=== PATIENT | female | born 1990 | race Caucasian/White ===

== ENCOUNTER → 2017-03-22 | Outpatient (CLI) | payer BC ==
[~2017-03-22] MED LIST: BCPILLS; FRRS300 PO; IBUP600T44 PO; OXYC-57 PO
[2017-03-22 12:17] LABS: HEMATOCRIT 43.2 % (37-47); MEAN CELL VOLUME 82.6 fL (80-100); MEAN CORPUSCULAR HEMOGLOBIN 28.3 pg (25-34); MEAN CORPUSCULAR HGB CONC 34.3 g/dl (32-36); PLATELET COUNT 304 K/uL (130-400); RED BLOOD COUNT 5.23 M/uL (4.2-5.4); WHITE BLOOD COUNT 7.53 K/uL (4.8-10.8)
== END | disposition home or self-care (01) ==
LOC: C.LAB1850 10:27
PROVIDERS: ATTEND Obstetrics & Gynecology
DX: N93.8 Other specified abnormal uterine and vaginal bleeding (principal)

== ENCOUNTER → 2017-05-24 | Day surgery (SDC) | payer BC ==
[2017-05-04 08:53] VITALS: Ht 162.6 cm; Wt 90.9 kg
[~2017-05-24] VITALS: Ht 162.6 cm; Wt 90.9 kg
[~2017-05-24] MED LIST changes: +ATROPINE SULFATE 0.1 MG/ML 5ML SYR IV PRN; -BCPILLS; +CHECK SCOPOLAMINE PATCH PLACEMENT SCH; +DEXAMETHASONE SOD INJ 4 MG/ML VIAL ONE; +EpHEDrine SULFATE INJ 50 MG/ML AMP IV PRN; +FENTANYL CITRATE INJ 50 MCG/1 ML 2 ML VIAL IV PRN; +FENTANYL CITRATE INJ 50 MCG/1 ML 2 ML VIAL ONE; -FRRS300 PO; +HYDROmorphone INJ 1 MG/ML SYR IV PRN; -IBUP600T44 PO; +IBUPROFEN 600 MG TAB PO PRN; +KETOROLAC TROMETHAMINE 30 MG/ML VIAL IV. PRN; +LACTATED RINGER'S 1000ML 1,000 ML IV SCH; +LIDOCAINE HCL 2% 2 ML VIAL (20MG/ML) ONE; +METOCLOPRAMIDE HCL INJ 5 MG/ML 2 ML VIAL IV PRN; +MIDAZOLAM HCL 1 MG/ML 2ML VIAL ONE; +ONDANSETRON INJ 2 MG/ML 2 ML VIAL IV PRN; +ONDANSETRON INJ 2 MG/ML 2 ML VIAL ONE; -OXYC-57 PO; +OXYCODONE/ACETAMINOPHEN 5-325 TAB PO PRN; +PRENTAB26 PO; +PROMETHAZINE HCL INJ 12.5 MG in SODIUM CHLORIDE 0.9% 50ML 50 ML IV PRN; +PROPOFOL IV EMULSION 10 MG/ML 20 ML VIAL IV ONE; +SCOPOLAMINE 1.5 MG TDSY TD ONE; +SODIUM CHLORIDE 0.9% 1000ML 1,000 ML IV SCH; +SUCCINYLCHOLINE CHLORIDE 20 MG/ML 10 ML VIAL IV ONE
--- NOTE | 2017-05-24 06:52 | History & Physical Bridge - [place] ---
H&P Re-Evaluation Bridge Note: I have examined the patient, reviewed the History & Physical and in the interval since the performance of the History & Physical I have noted the following changes of clinical significance: No changes noted
--- NOTE | 2017-05-24 06:54 | Discharge Instructions-SurgCtr ---
Discharge Instructions Date of Service May 24, 2017. Visit Reason for Visit: Irregular Menses, Thickened Endometrium Discharge Discharge Diagnosis / Problem: thickened endometrium Discharge Goals Goal(s): Specific goals Activity Recommendations Activity Limitations: per Instructions/Follow-up section Anesthesia . Post Anesthesia Instructions: If you have had General Anesthesia or IV Sedation: * Do not drive today. * Resume driving when surgeon permits. * Do not make important decisions or sign legal documents today. * Call surgeon for: 1. Temperature elevations greater than 101 degrees F. 2. Uncontrollable pain. 3. Excessive bleeding. 4. Persistent nausea and vomiting. 5. Medication intolerance (nausea, vomiting or rash). * For nausea and vomiting use only clear liquids such as: tea, soda, bouillon until nausea subsides, then gradually increase diet as tolerated. * If you have any concerns or questions, call your surgeon's office. If physician is unavailable and it is an emergency, call 911 or go to the nearest emergency room. . Instructions / Follow-Up Instructions / Follow-Up ACTIVITY RECOMMENDATIONS: * Avoid tampons, douching, hot tubs, pools, and intercourse until bleeding has stopped. * May shower as usual. * No strenuous activity for 24-48 hours. After 24-48 hours, you may do anything you feel like doing (driving and sports are okay). SPECIAL CARE INSTRUCTIONS: Special Diet: * Mild nausea may occur in the immediate post-operative period. * Take clear liquids such as tea, cola or bouillon until all nausea has subsided; you may then resume your normal diet. Special Care: * Light bleeding and vaginal spotting can last from a few days to 3-4 weeks. Call your doctor if bleeding becomes heavier than the heaviest part of your period. * Check your temperature twice a day for one week. If it goes above 100.4 degrees Fahrenheit (38.0 Celsius), notify your doctor. * Call your doctor's office for an appointment for 6 weeks after your surgery. FOLLOW-UP VISIT: Call your doctor's office for an appointment for 6 weeks after your surgery. Diet Recommendations Home Diet: resume previous diet Pending Studies Studies pending at discharge: no Medical Emergencies . Who to Call and When: Medical Emergencies: If at any time you feel your situation is an emergency, please call 911 immediately. . Non-Emergent Contact Non-Emergency issues call your: Primary Care Provider . . "Provider Documentation" section prepared by Alea Muir. .
--- NOTE | 2017-05-24 08:01 | [facility] Post Operative Brief Note ---
Immediate Operative Summary Operative Date May 24, 2017. Pre-Operative Diagnosis Dysfunctional Uterine Bleeding Post-Operative Diagnosis same as preop Procedure(s) Performed Dilatation And Curettage, Hysteroscopy Surgeon Dr. Muir [employer] Surgeon(s) none Estimated Blood Loss 10ML Findings see dictation Specimens A: Endometrial Curettings Complication(s) None Disposition Recovery Room / PACU
[2017-05-24 08:21] VITALS: TEMP 36.5
--- NOTE | 2017-05-24 08:22 | Anesthesia Progress Nt - [facility] ---
Anesthesia Post Op Note Date & Time May 24, 2017 at 08:22 Vital Signs Pain Intensity: 0 Vital Signs Past 12 Hours Date Time Temp Pulse Resp B/P (MAP) Pulse Ox O2 Delivery O2 Flow Rate FiO2 05/24/17 08:14 36.6 05/24/17 08:11 115/78 (83) 05/24/17 08:10 65 18 94 05/24/17 08:10 64 18 05/24/17 08:06 115/76 (79) 05/24/17 08:05 71 21 96 05/24/17 08:05 71 21 05/24/17 08:01 100/63 (69) 05/24/17 08:00 Room Air 05/24/17 08:00 54 15 98 05/24/17 08:00 53 15 05/24/17 07:56 117/66 (82) 05/24/17 07:55 56 19 99 05/24/17 07:55 58 19 05/24/17 07:51 109/68 (83) 05/24/17 07:50 59 19 05/24/17 07:50 61 19 97 05/24/17 07:45 115/71 (83) 05/24/17 07:43 36.6 65 16 115/71 99 Diffusion Mask 5 05/24/17 06:29 36.9 78 22 140/89 (106) 100 Room Air Notes Mental Status: alert / awake / arousable, participated in evaluation Pt Amnestic to Procedure: Yes Nausea / Vomiting: adequately controlled Pain: adequately controlled Airway Patency, RR, SpO2: stable & adequate BP & HR: stable & adequate Hydration State: stable & adequate Anesthetic Complications: no major complications apparent
--- NOTE | 2017-05-24 08:28 | OPERATIVE REPORT ---
DATE OF OPERATION: 05/24/2017 PREOPERATIVE DIAGNOSES: Dysfunctional uterine bleeding and thickened endometrium. POSTOPERATIVE DIAGNOSES: Same. PROCEDURE: D&C with hysteroscopy. SURGEON: Dr. Muir. MANAGER PAID: None. ESTIMATED BLOOD LOSS: 10 mL. FLUID DEFICIT: 45 mL of normal saline. FINDINGS: Endometrial cavity essentially filled with a cribriform tissue, demonstrating dilated blood vessels and discoloration, both calcification looking white and atypical vessel looking bluish black throughout the tissue. SPECIMENS: Endometrial curettings. COMPLICATIONS: None. DISPOSITION: Stable to the recovery room. DESCRIPTION OF PROCEDURE: Josy Zuniga is a 26-year-old with abnormal uterine bleeding, found to have thickened endometrium on ultrasound and brought to the operating room for a D&C and hysteroscopy. She was placed on the table in the dorsal lithotomy position with candy-cane stirrups, prepped and draped in standard sterile fashion and a hard time-out was taken prior to proceeding. The bladder was emptied of 300 mL of clear yellow urine via straight catheterization. Suresh and weighted specula were then placed in the vagina to expose the cervix, which anterior lip was then grasped using a single-tooth tenaculum. Uterus was sounded to 8 cm and then the cervical dilation proceeded to a 21-Faroese. This allowed easy placement of a 5-mm hysteroscope into the cavity. Initial entry to the cavity revealed a soft cribriform appearing tissue, essentially filling the endometrial cavity in a web-like manner. Some parts of it appeared to contain calcifications of bright white material. Other parts appeared to contain atypical vessels, some of which were dilated and tortuous with a bluish black discoloration to some of the tissue. Given the overall shape of the cavity, I felt confident this was indeed the endometrial cavity, although definitive ostia could not be visualized due to the filling of tissue. As the hysteroscope was withdrawn, I watched and again by looking at the endocervical cavity and the way that it blossomed directly into this tissue filled cavity, I felt confident of the correct placement of the scope. The scope was then withdrawn. Telfa was placed in the vagina to catch endometrial curettings and a sharp curet was then gently introduced to the fundus and used to curette the tissue. Several large solid pieces of tissue measuring up to 2-3 cm in size were almost immediately retrieved with minimal effort. Further curettings revealed continued excessive endometrial appearing tissue, some of which was quite solid and pale in appearance. Curettage was carried out until cry was felt. The scope was then reintroduced and a more normal appearing endometrial cavity was then able to be seen. The ostia were able to be visualized at this time; however, a small amount of abnormal tissue did appear to remain. Therefore, the scope was withdrawn and gentle curettage was directed at the areas, where abnormal tissue was felt to remain. A small amount of additional endometrial curettings was retrieved in this manner. All the endometrial curettings were placed in 1 sample to be sent to pathology. The scope was replaced one final time in the cavity, which revealed a nearly normal endometrial cavity and endocervical canal. The scope was then withdrawn. All instruments were removed from the patient. EBL was estimated at 10 mL absolute maximum and the fluid deficit was 45 mL of normal saline. The patient will be transferred in stable condition to the recovery room. I attest to the content of the Intraoperative Record and any orders documented therein. Any exception s are noted below.
[2017-05-24 08:44] VITALS: BP 134/86; PULSE 54; O2SAT 98
== END | disposition home or self-care (01) ==
LOC: X.SURG 06:06
PROVIDERS: ATTEND Obstetrics & Gynecology
DX: N85.01 Benign endometrial hyperplasia (principal); R93.8 Abnormal findings on diagnostic imaging of other specified body structures; E03.9 Hypothyroidism, unspecified; Z82.49 Family history of ischemic heart disease and other diseases of the circulatory system; E66.9 Obesity, unspecified

== ENCOUNTER → 2017-11-23 | Outpatient (CLI) | payer BC ==
[~2017-11-23] MED LIST changes: -ATROPINE SULFATE 0.1 MG/ML 5ML SYR IV PRN; -CHECK SCOPOLAMINE PATCH PLACEMENT SCH; -DEXAMETHASONE SOD INJ 4 MG/ML VIAL ONE; -EpHEDrine SULFATE INJ 50 MG/ML AMP IV PRN; -FENTANYL CITRATE INJ 50 MCG/1 ML 2 ML VIAL IV PRN; -FENTANYL CITRATE INJ 50 MCG/1 ML 2 ML VIAL ONE; -HYDROmorphone INJ 1 MG/ML SYR IV PRN; -IBUPROFEN 600 MG TAB PO PRN; -KETOROLAC TROMETHAMINE 30 MG/ML VIAL IV. PRN; -LACTATED RINGER'S 1000ML 1,000 ML IV SCH; -LIDOCAINE HCL 2% 2 ML VIAL (20MG/ML) ONE; -METOCLOPRAMIDE HCL INJ 5 MG/ML 2 ML VIAL IV PRN; -MIDAZOLAM HCL 1 MG/ML 2ML VIAL ONE; -ONDANSETRON INJ 2 MG/ML 2 ML VIAL IV PRN; -ONDANSETRON INJ 2 MG/ML 2 ML VIAL ONE; -OXYCODONE/ACETAMINOPHEN 5-325 TAB PO PRN; -PROMETHAZINE HCL INJ 12.5 MG in SODIUM CHLORIDE 0.9% 50ML 50 ML IV PRN; -PROPOFOL IV EMULSION 10 MG/ML 20 ML VIAL IV ONE; -SCOPOLAMINE 1.5 MG TDSY TD ONE; -SODIUM CHLORIDE 0.9% 1000ML 1,000 ML IV SCH; -SUCCINYLCHOLINE CHLORIDE 20 MG/ML 10 ML VIAL IV ONE
[2017-11-23 09:37] LABS: HEMOGLOBIN 14.9 g/dL (12.0-16.0); MEAN CELL VOLUME 80.8 fL (80-100); MEAN CORPUSCULAR HGB CONC 34.7 g/dl (32-36); MEAN PLATELET VOLUME 10.4 fL (7.4-10.4); PLATELET COUNT 391 K/uL (130-400); RED CELL DISTRIBUTION WIDTH CV 13.2 % (11.5-14.5); RED CELL DISTRIBUTION WIDTH SD 38.9 fL (36.4-46.3); WHITE BLOOD COUNT 7.99 K/uL (4.8-10.8)
[2017-11-23 13:17] LABS: ALBUMIN 3.7 gm/dl (3.4-5.0); ALT/SGPT 59 U/L (12-78); AST/SGOT 25 U/L (15-37); BLOOD UREA NITROGEN 10 mg/dl (7-18); CALCIUM 9.1 mg/dl (8.5-10.1); CARBON DIOXIDE 25 mmol/L (21-32); CREATININE 0.87 mg/dl (0.60-1.20); GLUCOSE 84 mg/dl (70-99); POTASSIUM 4.1 mmol/L (3.5-5.1); SODIUM 139 mmol/L (136-145)
[2017-11-23 13:20] LABS: ALKALINE PHOSPHATASE 76 U/L (45-117); TOTAL PROTEIN 7.8 gm/dl (6.4-8.2)
== END | disposition home or self-care (01) ==
LOC: C.LAB1850 08:22
PROVIDERS: ATTEND Obstetrics & Gynecology Gynecologic Oncology
DX: Z01.818 Encounter for other preprocedural examination (principal); N85.02 Endometrial intraepithelial neoplasia [EIN]

== ENCOUNTER 2020-07-29 06:45 | Observation (INO) ==
--- NOTE | 2020-07-19 10:13 | Communication Note ---
Date of Service: July 19, 2020 Case reviewed. Case approved due to urgent nature of procedure. The patient has endometrial cancer.
--- NOTE | 2020-07-19 10:43 | Anesthesiology Consultation ---
Date of Service July 19, 2020 Assessment & Plan (1) Encounter for pre-operative examination: Chart Review Chart Review: Acceptable Risk for Surgery (pending preop Covid testing and anesthesia evaluation ) and Patient NOT seen in Pre Admission Testing - Check test AM DOS. Will order CBC with diff and PPR secondary to insulin resistance. Will leave to anesthesia discretion if EKG needed DOS. 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 At this point her surgery is already delayed significantly due to her own prior covid infection, found on the pre-op screening for her scheduled surgery date in 2019. Now she is facing possible delay again due to OR schedule restrictions per hospital COVID census. Because each delay puts her at risk of upstaged malignancy, and a very meaningful change would occur in her prognosis and management if she were to reach any stage beyond 1A, I consider the need to proceed with her hysterectomy an emergency at this point. I will be operating on her during a date when I was previously scheduled to be out of work on vacation in order to enable this to take place in the absolute earliest timeframe that the hospital can accommodate." Per Dr. Zoë Soto 07/19/20= "Case reviewed. Case approved due to urgent nature of procedure. The patient has endometrial cancer." Per nursing assessment 07/08/20, patient denies any recent travel. No known Covid positive contacts or Covid related symptoms. Pt did test Covid positive 05/21/20 and then Covid negative on 06/03/20. Pt will be following with surgeon regarding preop Covid testing date and time= will await results. D&C, hysteroscopy: [place]04[place]20[place] [facility] [place] Surgery Operation Date: 07/29/20 07:45 Proposed Procedures p Robotic Total Laparoscopic Hysterectomy - Alea Muir MD Height/Weight Height: 5 ft 4 in Weight: 95.254 kg Allergies Allergy/AdvReac Type Severity Reaction Status Date / Time No Known Allergies Allergy Mild Verified 07/18/20 08:26 Medications Home Medications Medication Instructions Recorded Confirmed Last Taken cholecalciferol (vitamin D3) 100 5,000 unit PO QDL cap 05/13/20 07/18/20 Unknown mcg (4,000 unit) capsule levothyroxine 137 mcg PO QAM 07/08/20 07/18/20 Unknown medroxyprogesterone 5 mg PO QAM 07/08/20 07/18/20 Unknown Past Medical History Medical History Complex endometrial hyperplasia with atypia Dyslipidemia Fabio's thyroiditis Hypothyroidism Insulin resistance hx per endocrine under surveillance, [id number] 03/29/20 5.4% Obesity Past Family History Family History Father Hypertension Past Surgical History Surgical History H/O section H/O myringotomy History of dilatation and curettage x2 D&C, hysteroscopy: 04/04/20: [place] [facility] [place] Social History Smoking Status: Never smoker Do You Dip or Chew Tobacco: No Hx Alcohol Use: Yes Alcohol type: wine alcohol intake frequency: holidays/special occasions only Hx Substance Use: No substance use type: does not use Testing Laboratory Results 06/25/20= TSH: 3.590 FREE T4: 1.32
[~2020-07-29 06:45] MED LIST changes: +LACTATED RINGER'S 1,000 ML IV SCH; +LR 15ML/HR IV SCH; -PRENTAB26 PO
[2020-07-29] MEDS ORDERED: fentaNYL citrate 100 MCG/2 ML VIAL ONE ×2 (07:06→08:55)
[2020-07-29] MEDS ORDERED: MIDAZOLAM HCL 1 MG/ML 2ML VIAL ONE (07:06)
[2020-07-29 07:30] LABS: Basophils # (auto) 0.02 K/uL (0-0.2); Basophils % (auto) 0.2 %; Eosinophils # (auto) 0.08 K/uL (0-0.5); Hematocrit (blood only) 43.4 % (37-47); Hemoglobin 14.8 g/dL (12.0-16.0); Immature Granulocytes # (auto) 0.02 K/uL (0.00-0.02); Immature Granulocytes % (auto) 0.2 %; Lymphocytes # (auto) 1.73 K/uL (1.2-3.4); Lymphocytes % (auto) 21.5 %; Mean Corpuscular Hemoglobin 28.5 pg (25-34); Mean Corpuscular Volume 83.6 fL (80-100); Mean Platelet Volume 10.5 fL (7.4-10.4); Monocytes # (auto) 0.63 K/uL (0.11-0.59); Monocytes % (auto) 7.8 %; Neutrophils # (auto) 5.58 K/uL (1.4-6.5); Neutrophils % (auto) 69.3 %; Platelet Count 334 K/uL (130-400); RDW Coefficient of Variation 12.8 % (11.5-14.5); RDW Standard Deviation 38.5 fL (36.4-46.3); Red Blood Count 5.19 M/uL (4.2-5.4); White Blood Count 8.06 K/uL (4.8-10.8)
[2020-07-29 07:43] LABS: Mean Corpuscular Hgb Conc 34.1 g/dL (32-36)
[2020-07-29] MEDS ORDERED: SCOPOLAMINE 1.5 MG TDSY TD ONE (07:56)
[2020-07-29 07:59] LABS: BUN Creatinine Ratio 13.6 (10-20); Calcium 9.4 mg/dl (8.5-10.1); Creatinine Clr Calc Pharmacy 98.8 ml/min; Est GFR (African American) 96.8; Est GFR (Non-African American) 83.5; Potassium 3.9 mmol/L (3.5-5.1)
[2020-07-29] MEDS ORDERED: ATROPINE SULFATE 0.1 MG/ML 10ML SYR IV PRN (08:01)
[2020-07-29] MEDS ORDERED: HYDROmorphone INJ 1 MG/ML SYRINGE IV PRN (08:01)
[2020-07-29] MEDS ORDERED: fentaNYL citrate 100 MCG/2 ML VIAL IV PRN (08:01)
[2020-07-29] MEDS ORDERED: LABETALOL HCL IV 5 MG/ML 20ML IV PRN (08:01)
[2020-07-29] MEDS ORDERED: ePHEDrine sulfate 50 MG/ML AMP IV PRN (08:01)
[2020-07-29] MEDS ORDERED: FLUMAZENIL 0.1 MG/1 ML 10 ML VIAL IV PRN (08:01)
[2020-07-29] MEDS ORDERED: NALOXONE HCL 0.4 MG/1 ML VIAL/CARP IV PRN (08:01)
[2020-07-29] MEDS ORDERED: ONDANSETRON INJ 2 MG/ML 2 ML VIAL IV PRN ×2 (08:01→10:01)
[2020-07-29] MEDS ORDERED: PROMETHAZINE HCL 12.5 MG in SODIUM CHLORIDE 0.9% 50 ML IV PRN (08:01)
--- NOTE | 2020-07-29 08:03 | History & Physical Bridge Note ---
Date of Service July 29, 2020 History & Physical Bridge Note I have examined the patient, reviewed the History & Physical and in the interval since the performance of the History & Physical I have noted the following changes of clinical significance: no changes noted
[2020-07-29] MEDS ORDERED: GLYCOPYRROLATE 0.2 MG/ML VIAL ONE ×2 (09:02→09:45)
[2020-07-29] MEDS ORDERED: LIDOCAINE HCL 2% 2 ML VIAL/AMP(20MG/ML) INFIL ONE (09:02)
[2020-07-29] MEDS ORDERED: NEOSTIGMINE METHYLSULFATE 5 MG/5 ML SYR ONE (09:02)
[2020-07-29] MEDS ORDERED: PROPOFOL IV EMULSION 10 MG/ML 20 ML VIAL IV ONE (09:02)
[2020-07-29] MEDS ORDERED: DEXAMETHASONE SOD INJ 4 MG/ML VIAL ONE (09:02)
[2020-07-29] MEDS ORDERED: ONDANSETRON INJ 2 MG/ML 2 ML VIAL ONE (09:02)
[2020-07-29] MEDS ORDERED: ROCURONIUM BROMIDE 10 MG/ML 5 ML VIAL IV ONE ×2 (09:03→09:26)
[2020-07-29] MEDS ORDERED: METHYLENE BLUE 0.5% 10 ML VIAL ONE (09:40)
[2020-07-29] MEDS ORDERED: KETOROLAC 30 MG/ML VIAL ONE (09:45)
[2020-07-29] MEDS ORDERED: oxyCODONE/ACETAMINOPHEN 5mg/325mg TAB PO PRN ×2 (10:01)
[2020-07-29] MEDS ORDERED: MEPERIDINE HCL 50 MG/ML CARP IV PRN (10:01)
[2020-07-29] MEDS ORDERED: MEPERIDINE HCL 25 MG/ML CARP/VIAL IV PRN (10:01)
[2020-07-29] MEDS ORDERED: KETOROLAC 30 MG/ML VIAL IV PRN (10:01)
[2020-07-29] MEDS ORDERED: ACETAMINOPHEN 325 MG TAB PO PRN (10:01)
[2020-07-29] MEDS ORDERED: IBUPROFEN 600 MG TAB PO PRN (10:01)
--- NOTE | 2020-07-29 10:08 | Operative Report ---
[facility] Post Operative Report Pre & Post Diagnosis Operation Date: 07/29/20 08:20 Pre-Op Diagnosis: Endometrial Intraepithelial Neoplasia Post-Op Diagnosis: Endometrial Intraepithelial Neoplasia I identified the patient and participated in the time-out.: Yes Procedure Operation Date: 07/29/20 08:20 Actual Procedures p Robotic Total Laparoscopic Hysterectomy with Bilateral Salpingectomy, and Cystoscopy(Not Applicable) - Alea Muir MD Surgeon Alea Muir MD Cereal Miller None Estimated Blood Loss 25 Findings Consistent with Post-Op Diagnosis Specimens Pelvic washings, Uterus/Cervix/Tubes Anesthesia Type General Complications none Disposition Accompanied Patient To Recovery: Yes Disposition: Recovery Room Description of Procedure The patient was brought to the operating room and placed on the table in dorsal lithotomy position with yellofin stirrups, prepped and draped in standard sterile fashion, and a hard time out was taken prior to proceeding. The bladder was emptied via placement of nolan catheter. A [employer]-[id number] uterine manipulator was placed in the usual manner. Attention was then turned to the abdomen where optical entry was made at the umbilicus without complication. The abdomen was insufflated and the patient was placed in steep Trendelenburg. Under direct visualization, right and left lower quadrant ports were placed without complication. Survey of the abdomen revealed normal-appearing pelvic anatomy, and abdomen with a single adhesion / small hernia at the umbilicus. Washings were completed with saline and collected in a nursing techn. The robot was then docked and surgery proceeded with the surgeon at the console. The ureter was identified on each side and traced along its course into the pelvis. Each fallopian tube in turn was elevated, dissected off the mesosalpinx and left attached to the uterine cornu. Each utero-ovarian ligament was ligated and then divided. Each round ligament was ligated and then divided. The anterior leaflets of the broad ligament were dissected to create a bladder flap which was gently mobilized downward below the colpotomy cup ridge. Each uterine artery was skeletonized, ligated, and then divided. Circumferential colpotomy was then completed following the colpotomy cup guide. The cervix, uterus and bilateral tubes were then retrieved en bloc via the vagina. The vaginal cuff was then closed using V-Kirby suture in the typical running non-locked fashion. The needle was retrieved through a trocar. After administration of IV Methylene Blue dye, cystoscopy was then utilized to examine the bladder dome which was free of suture or injury. The ureteral orifices were observed until a good strong jet of blue stained urine was seen from each. The bladder was then drained. The robot was then undocked, and abdominal trocar sites were closed using 4-0 monocryl at each of the skin incisions. A dermabond dressing was applied to each site. A final vaginal exam ensured no materials were present in the vagina and the cuff was intact. The patient was then transferred in stable condition to the recovery room. I attest to the content of the Intraoperative Record and any orders documented therein. Any exceptions are noted below.
[2020-07-29] MEDS ORDERED: LACTATED RINGER'S 1,000 ML IV SCH (10:15)
--- NOTE | 2020-07-29 10:34 | Anesthesiology Progress Note ---
Date of Service July 29, 2020 Anesthesia Post Procedure Vital Signs Vital Signs: Temp Pulse Pulse Resp BP BP Pulse Ox 07/29/20 10:25 70 27 H 131/87 100 07/29/20 10:15 68 19 115/81 100 07/29/20 10:09 36.6 C 65 22 127/85 100 07/29/20 07:20 36.8 C 100 H 16 147/94 H 100 Transfer of Care Handoff Completed per policy Notes Mental Status: alert / awake / arousable Patient Amnestic to Procedure: Yes Nausea / Vomiting: adequately controlled Pain: adequately controlled Airway Patency, RR, SpO2: stable & adequate BP & HR: stable & adequate Hydration State: stable & adequate Anesthetic Complications: no major complications apparent
[2020-07-29 13:00] LABS: Hematocrit (blood only) 40.4 % (37-47); Hemoglobin 13.9 g/dL (12.0-16.0)
[2020-07-29] MEDS ORDERED: DOCUSATE SODIUM 100 MG CAP PO SCH (21:00)
--- NOTE | 2020-07-31 08:38 | Discharge Summary ---
Date of Service July 31, 2020 Discharge Data Procedures Performed Operation Date: 07/29/20 08:20 Actual Procedures p Robotic Total Laparoscopic Hysterectomy with Bilateral Salpingectomy, (Not Applicable) - Alea Muir MD s and Cystoscopy(Not Applicable) - lAea Muir MD Hospital Course (1) Endometrial intraepithelial neoplasia (EIN): Patient admitted for robotic TLH, bilateral salpingectomy, cystoscopy, which she underwent without complication. She had an uneventful postoperative recovery and was discharged home on POD#0 after meeting PACU criteria. She will stop her progestins postop but continue the remainder of her usual home medicine regimen. She was provided with #20 percocet Rx to her home pharmacy and will have f/u in 2 and 6 weeks post op per the typical plan. Coding Level of Care Code None Diagnoses Endometrial intraepithelial neoplasia (EIN) N85.02
== END 2020-07-29 15:00 | disposition home or self-care (01) ==
LOC: 4S2 06:45 → ASU 06:45